=== PATIENT | male | born 1990 | race Caucasian/White ===

== ENCOUNTER 2023-06-08 08:56 | Emergency (ER) | payer OTHER ==
[~2023-06-08] VITALS: Ht 170.2 cm; Wt 75.0 kg
[2023-06-08] MEDS ORDERED: KETOROLAC 30 MG/ML 1ML VIAL IM ONE (10:30)
[2023-06-08] MEDS ORDERED: diazePAM 5MG TABLET PO ONE (10:30)
[2023-06-08] MEDS ORDERED: LIDOCAINE 5% (LIDODERM) PATCH TD ONE (10:30)
[2023-06-08] MEDS ORDERED: METH-1164 PO (12:05)
[2023-06-08] MEDS ORDERED: LIDO5DIS41 TD (12:06)
[2023-06-08] MEDS ORDERED: PRED20TA PO (12:06)
[2023-06-08] MEDS ORDERED: IBUP80TA PO (12:06)
[2023-06-08 12:53] VITALS: BP 121/70; TEMP 98; O2SAT 99
== END 2023-06-08 12:54 | disposition home or self-care (01) ==
LOC: EDBD 08:56 → M ED 08:56
DX: M54.41 Lumbago with sciatica, right side (principal)
CPT/HCPCS: 72110; 96372; 99284; J1885